=== PATIENT | male | born 1965 | race Caucasian/White ===

== ENCOUNTER → 2024-09-17 11:52 | Outpatient (REF) | payer BC, SELFPAY | LOC: HWRAD 11:52 | PROVIDERS: ATTENDING PHYSICIAN Internal Medicine | DX: M62.830 Muscle spasm of back (principal) | CPT/HCPCS: 72072; 72110 ==

== ENCOUNTER → 2024-09-22 15:27 | Outpatient (REF) | payer BC, SELFPAY | LOC: RAD 15:27 | PROVIDERS: ATTENDING PHYSICIAN Internal Medicine | DX: M54.9 Dorsalgia, unspecified (principal) | CPT/HCPCS: 71275; 74174; Q9967 ==

== ENCOUNTER → 2024-09-29 07:36 | Outpatient (REF) | payer BC, SELFPAY | LOC: HWRAD 07:36 | PROVIDERS: ATTENDING PHYSICIAN Internal Medicine | DX: R10.84 Generalized abdominal pain (principal) | CPT/HCPCS: 76700 ==